=== PATIENT | female | born 1940 | race Caucasian/White ===

== ENCOUNTER 2017-08-17 10:42 | Emergency (ER) | payer MEDICARE, BC ==
[~2017-08-17] VITALS: Ht 165.1 cm; Wt 78.0 kg
[~2017-08-17 10:42] MED LIST: ALLEGRA180 MG; ALLEGRA60 MG PO; AMOXICILLIN/CL875 MG OR; AMOXICILLIN/CL875 MG PO; AMOXICILLIN500 MG PO; AMOXICILLIN875 MG OR; BABY ASPIRIN81 MG; CALCIUM600 M1; CHOLESTYRAMINE L4 G1 PO; CIPRO500 MG PO; CIPROFLOXACN500 MG PO; FIBER0.52 GM PO; FIBER625 MG; GLUCO/CHOND; KONSYL FIBER625 MG PO; LISINOPRIL40 MG; LISINOPRIL40 MG OR; METROGEL1 % EX; NAPROSYN500 MG PO; OMEGA 31200 MG OR; PROBIOTI3 PO; PYRIDIUM200 MG PO; ROBITUSSIN AC10 ML PO; VIT B-12; VIT D3; ZESTRIL40 MG PO; ZYRTEC10 M5 PO; [UNRECOGNIZED DRUG - OTHER]; [UNRECOGNIZED DRUG - OTHER] EX
[2017-08-17] MEDS ORDERED: PEPCID20 MG PO (10:52)
[2017-08-17] MEDS ORDERED: LISINOPRIL40 MG PO (11:17)
[2017-08-17 11:24] LABS: URINE BILIRUBIN - DIPSTICK NEGATIVE (NEGATIVE); URINE BLOOD DIPSTICK MODERATE (NEGATIVE); URINE GLUCOSE - DIPSTICK 100 mg/dL (NEGATIVE); URINE KETONE NEGATIVE (NEGATIVE); URINE PH 5.5 (4.5-8.0); URINE PROTEIN - DIPSTICK TRACE mg/dL (NEG-TRACE); URINE SPECIFIC GRAVITY <=1.005
[2017-08-17 11:26] LABS: URINE CLARITY SL CLOUDY; URINE COLOR ORANGE; URINE LEUK ESTERASE TRACE (NEGATIVE); URINE NITRITE - DIPSTICK POSITIVE (Negative)
[2017-08-17 11:27] LABS: URINE BACTERIA FEW hpf; URINE RBC 0-2 RBC/hpf (0-5)
[2017-08-17] MEDS ORDERED: CEPHALEXIN500 M1 PO (11:34)
[2017-08-17 11:40] VITALS: BP 151/71
== END 2017-08-17 11:40 | disposition home or self-care (01) ==
LOC: ED 10:42
PROVIDERS: Family Medicine
DX: N39.0 Urinary tract infection, site not specified (principal); R30.0 Dysuria

== ENCOUNTER 2024-06-16 12:44 | Observation (INO) | payer MEDICARE, BC ==
[~2024-06-16] VITALS: Ht 165.1 cm; Wt 83.8 kg
[2024-06-16] VITALS (12 sets, daily range): BP systolic 131–179; BP diastolic 59–84
[~2024-06-16 12:44] MED LIST changes: +AMLODIPINE BESYL5 MG PO; +ASPIRIN ADULT L81 M2 PO; +CEPHALEXIN500 M1 PO; +CLARITIN-D1 TA2 PO; +FINACEA15 % EX; +FLONASE AL50 MCG/ACT IN; +LISINOPRIL40 MG PO; +METRONIDAZOL500 MG PO; +PEPCID20 MG PO; +SINGULAIR10 MG PO; +VITAMIN C1000 MG PO; +VITAMIN D31000 UNI1 PO
--- NOTE | 2024-06-16 12:50 | NUR ---
PT WALKED BACK TO ER ROOM 9 WITH A STEADY GAIT, NO DISTRESS NOTED
[2024-06-16] MEDS ORDERED: ASPIRIN 81 MG/TAB PO ONE (12:55)
[2024-06-16 13:27] LABS: BASO% 0.4 % (0-3); EOS% 2.1 % (0-8); HEMATOCRIT 41.5 % (37.0-47.0); HEMOGLOBIN 13.6 g/dl (12.0-16.0); IMMATURE GRANULOCYTES 0.4 % (0.0-5.0); LYMPH% 33.4 % (15-41); MEAN CELL VOLUME 91.6 fL CALC (80.0-100.0); MEAN CORPUSCULAR HGB CONC 32.8 g/dL CAL (32.0-36.0); MONO% 9.1 % (2-13); NEUT# 4.06 thou/uL (2.00-7.15); NEUT% 54.6 % (42-76); RED BLOOD COUNT 4.53 mill/uL (4.20-5.60); RED CELL DISTRI WIDTH 12.6 % (11.5-15.5)
[2024-06-16 13:36] LABS: ALBUMIN 4.3 g/dL (3.2-5.0); ALKALINE PHOSPHATASE 79 u/l (38-126); ANION GAP 9 (6-22 (CALC)); BILIRUBIN, TOTAL 0.4 mg/dL (0.02-1.3); CARBON DIOXIDE 25 mmol/l (22-30); CHLORIDE 112 mmol/l (95-108); POTASSIUM 3.6 mmol/l (3.5-5.1); SGOT/AST 29 u/l (9-36); SODIUM 141 mmol/l (137-146); TOTAL PROTEIN 7.2 g/dL (6.3-8.2)
[2024-06-16 13:40] LABS: BUN 18 mg/dL (8-23); BUN/CREATININE RATIO 31 (12-20 (CALC)); CREATININE 0.6 mg/dL (0.5-1.0); ESTIMATED GFR 89 ML/MIN (>=90 (CALC))
[2024-06-16] MEDS ORDERED: NITROGLYCERIN 0.4 MG/TAB SL ONE ×2 (14:10→15:15)
--- NOTE | 2024-06-16 14:32 | NUR ---
NITRO 0.4MG SL GIVEN FOR ONGOING CHEST PAIN
[2024-06-16] MEDS ORDERED: NITROGLYCERIN 2% OINT UD 1 GM/PAK TD ONE (15:15)
[2024-06-16] MEDS ORDERED: MAGNESIUM HYDROXIDE 30 ML UDC PO PRN (16:05)
[2024-06-16] MEDS ORDERED: ACETAMINOPHEN 325 MG/TAB PO PRN (16:05)
[2024-06-16] MEDS ORDERED: Zaleplon 5 MG/CAP PO PRN (16:05)
[2024-06-16] MEDS ORDERED: METRONIDAZOLE 1% TOP (16:18)
[2024-06-16] MEDS ORDERED: VITAMIN B-121000 MCG PO (16:19)
--- NOTE | 2024-06-16 16:27 | NUR ---
PT AMBULATED TO BATHROOM WITH STEADY GAIT
--- NOTE | 2024-06-16 17:32 | NUR ---
Reassessment of patient completed. No distress noted.
--- NOTE | 2024-06-16 18:21 | NUR ---
REPORT CALLED TO DAVID MEDINA
--- NOTE | 2024-06-16 18:33 | NUR ---
TO ROOM 278 VIA WHEELCHAIR. TELE #[address]
--- NOTE | 2024-06-16 18:43 | NUR ---
REPORT RECEIVED FROM CARMELO IN ED, PT ARRIVED ON UNIT @ 1825 TRANSPORTED VIA WC AND SETTLED IN RECLINER. ALERT AND ORIENED X 4, C/O CONTINUOUS PAIN TO LOWER CHEST RADIATING TO LEFT LOWER BACK. ORIENTED TO ROOM AND CALL DOUGLASS.
--- NOTE | 2024-06-16 20:36 | NUR ---
PATIENT IN ROOM SITTING IN RECLINER WATCHING TV. BEDSIDE ASSESSMENT COMPLETE. PATIENT CAME FROM ER TO MS AT 1825. PATIENT IS ON TELE. NO COMPLAINTS OF CHEST PAIN. EQUAL UNLABORED BREATHING. BOWEL SOUNDS PRESENT. PERIPHERAL PULSES. STONG AND EQUAL, JAMIE HOSE ON. BED AT LOWEST POSITION. CALL LIGHT WITHIN REACH.
[2024-06-16] MEDS ORDERED: ENOXAPARIN SODIUM 40 MG/0.4 ML SYR SC SCH (21:00)
[2024-06-16] MEDS ORDERED: AMLODIPINE BESYL5 MG PO (23:15)
[2024-06-17] VITALS: BP 143/59
--- NOTE | 2024-06-17 00:18 | NUR ---
PATIENT IN ROOM RESTING IN BED WITHEYES CLOSED. PATIENT HAS EQUAL UNLABORED BREATHING. NO VISUAL SIGNS OF DISTERESS. NO COMPLAINTS OF CHEST PAIN AT THIS TIME. BED AT LOWEST POSITION. CALL LIGHT WITHIN REACH.
--- NOTE | 2024-06-17 03:15 | NUR ---
PATIENT IN BED RESTING WITH EYES CLOSED. UNLABORED BREATHING, NO VISUAL SIGNS OF DISTRESS. NO COMPLAINTS OF CHEST PAIN AT THIS TIME. BED AT LOWEST POSITION. CALL LIGHT WITHIN REACH.
[2024-06-17 04:00] VITALS: BP 136/60
[2024-06-17 04:22] VITALS: BP 136/60
[2024-06-17 06:12] LABS: CHOLESTEROL HDL RATIO 3.7 (<4.4 (CALC))
[2024-06-17 07:00] VITALS: BP 130/55
--- NOTE | 2024-06-17 07:31 | NUR ---
PT IS AOX4, RESPIRATIONS ARE EVEN AND UNLABORED, LUNGS SOUND CLEAR THROUGHOUT, BOWEL SOUNDS ARE ACTIVE, PEDAL PULSES PALPABLE TO TOUCH, PT REPORTS PAIN ON LEFT MID BACK PT REPORT AT A PAIN LEVEL OF 1-2 ON A 0-10 PAIN SCALE.
[2024-06-17] MEDS ORDERED: LISINOPRIL 20 MG/TAB PO SCH (09:00)
[2024-06-17] MEDS ORDERED: amLODIPine BESYLATE 5 MG/TAB PO SCH (09:00)
[2024-06-17] MEDS ORDERED: ASPIRIN EC 81 MG/TAB PO SCH (09:00)
--- NOTE | 2024-06-17 10:02 | NUR ---
CONTACTED DR HANLEY'S OFFICE IN REFERENCE TO A CARDIOLOGY CONSULT. I SPOKE WITH NONA AT 1002 HRS.
[2024-06-17 11:13] VITALS: BP 128/60
[2024-06-17] MEDS ORDERED: NITROSTAT0.4 MG SL (12:34)
--- NOTE | 2024-06-17 13:17 | NUR ---
reviewed discharge instructions with pt, pulled iv out, removed tele and placed it in the return bin at nurses station.
--- NOTE | 2024-06-17 13:32 | NUR ---
PT LEFT THE FLOOR VIA WHEELCHAIR STAFF TRANSPORT WITH BELONGINGS IN HAND.
== END 2024-06-17 13:32 | disposition home or self-care (01) ==
LOC: ED 12:44 → ED-I 15:10 → ED 16:18 → MS2 16:19
PROVIDERS: Family Medicine; ADMIT Internal Medicine; ATTEND Internal Medicine
DX: R07.89 Other chest pain (principal); I10 Essential (primary) hypertension; E11.9 Type 2 diabetes mellitus without complications; K21.9 Gastro-esophageal reflux disease without esophagitis; G47.30 Sleep apnea, unspecified; I44.0 Atrioventricular block, first degree; M51.36 Other intervertebral disc degeneration, lumbar region
CPT/HCPCS: G0378; J1650